=== PATIENT | male | born 1995 | race Caucasian/White ===

== ENCOUNTER 2019-06-06 16:42 | Emergency (ER) | payer MEDICAID ==
[~2019-06-06] VITALS: Ht 182.9 cm; Wt 68.0 kg
[2019-06-06 17:37] LABS: Basophils # (auto) 0 uL; Basophils % (auto) 0.4 % (0.0-2.0); Eosinophils # (auto) 0.1 uL; Eosinophils % (auto) 1.4 % (0.0-7.0); Hemoglobin 15.9 g/dL (13.5-17.5); Lymphocytes # (auto) 2.8 uL; Lymphocytes % (auto) 43.4 % (10.0-50.0); Mean Corpuscular Hemoglobin 32.1 pg (28.0-32.0); Mean Corpuscular Hgb Conc. 34.5 g/dL (32.0-36.0); Monocytes # (auto) 0.5 uL; Monocytes % (auto) 7.3 % (0.0-12.0); Neutrophils % (auto) 47.5 % (37.0-80.0); Nucleated Red Blood Cells % 0.1 %; Platelet Count (auto) 215 10^3/uL (140-450); Red Blood Cells 4.95 10^6/uL (4.5-5.90); Red Cell Distribution Width 12.9 % (11.8-14.3); White Blood Cell 6.4 10^3/uL (4.4-10.8)
[2019-06-06 17:51] LABS: Urine Bacteria NONE SEEN /hpf (None Seen); Urine Blood Negative /uL (Negative); Urine Mucus FEW (None Seen); Urine Specific Gravity 1.037 (1.001-1.035); Urine WBC 1 /hpf (0 - 3)
[2019-06-06 17:58] LABS: Albumin 4.3 g/dL (3.4-5.0); BUN/Creatinine Ratio 15.1; Calcium 8.8 mg/dL (8.5-10.1); Potassium 3.5 mmol/L (3.5-5.1)
[2019-06-06 17:59] LABS: Alcohol, Urine < 3.0 mg/dL (0-5); Amphetamine Screen, Urine NEGATIVE (NEGATIVE); Barbiturate Scree,Urine NEGATIVE (NEGATIVE); Benzodiazephine Screen, Urine NEGATIVE (NEGATIVE); Cannabinoid Screen, Urine NEGATIVE (NEGATIVE); Cocaine Screen, Urine NEGATIVE (NEGATIVE); Opiate Scree,Urine NEGATIVE (NEGATIVE); Phencyclidine Screen, Urine NEGATIVE (NEGATIVE)
[2019-06-06 17:59] LABS: Bilirubin, Total 0.4 mg/dL (0.2-1.0); Total Protein 7.3 g/dL (6.4-8.2)
[2019-06-06 18:19] VITALS: BP 103/61
== END 2019-06-06 18:59 | disposition home or self-care (01) ==
LOC: ER 16:42
DX: R10.31 Right lower quadrant pain (principal); R10.32 Left lower quadrant pain
CPT/HCPCS: 36415; 74176; 80053; 80307; 81001; 85025

== ENCOUNTER 2020-08-25 13:27 | Emergency (ER) | payer SELFPAY ==
[~2020-08-25] VITALS: Ht 185.4 cm; Wt 73.9 kg
[2020-08-25 14:06] VITALS: BP 129/77
[2020-08-25] MEDS ORDERED: cefTRIAXone SOD 1,000 MG VL IM ONE (16:30)
[2020-08-25] MEDS ORDERED: ACETAMINOPHEN 500 MG TAB PO ONE (16:30)
== END 2020-08-25 17:17 | disposition home or self-care (01) ==
LOC: ER 13:27
DX: J12.9 Viral pneumonia, unspecified (principal); J03.90 Acute tonsillitis, unspecified; Z20.822 Contact with and (suspected) exposure to COVID-19
CPT/HCPCS: 36415; 71045; 87426; 93005; 96372; 99285; J0696

== ENCOUNTER 2021-03-16 09:12 | Emergency (ER) | payer SELFPAY ==
[~2021-03-16] VITALS: Ht 182.9 cm; Wt 67.1 kg
[2021-03-16] MEDS ORDERED: SODIUM CHLORIDE 0.9% 1,000 ML IV ONE ×2 (09:45)
[2021-03-16 09:50] LABS: Basophils # (auto) 0 10 ^3/uL (0-0.2); Basophils % (auto) 1.2 % (0.0-2.0); Eosinophils # (auto) 0.1 10 ^3/uL (0-0.8); Hematocrit 45.1 % (41.0-53.0); Hemoglobin 16.1 g/dL (13.5-17.5); Lymphocytes # (auto) 1.8 10 ^3/uL (0.4-5.4); Lymphocytes % (auto) 44.1 % (10.0-50.0); Mean Corpuscular Hemoglobin 32.6 pg (28.0-32.0); Mean Corpuscular Hgb Conc. 35.7 g/dL (32.0-36.0); Mean Corpuscular Volume 91.4 fL (80.0-100.0); Monocytes # (auto) 0.3 10 ^3/uL (0-1.3); Monocytes % (auto) 8.1 % (0.0-12.0); Neutrophils # (auto) 1.8 10 ^3/uL (1.6-8.6); Neutrophils % (auto) 44.6 % (37.0-80.0); Nucleated Red Blood Cells % 0.2 %; Red Blood Cells 4.93 10^6/uL (4.5-5.90); Red Cell Distribution Width 13.3 % (11.8-14.3)
[2021-03-16 10:12] LABS: Alanine Aminotransferase 29 U/L (16-61); Albumin 4.2 g/dL (3.4-5.0); Anion Gap 2 (5-15); Blood Urea Nitrogen 13 mg/dL (7-18); Carbon Dioxide 27 mmol/L (21-32); Chloride 108 mmol/L (98-107); Glucose 94 mg/dL (74-106); Magnesium 2.2 mg/dL (1.6-2.6); Potassium 4.4 mmol/L (3.5-5.1); Sodium 137 mmol/L (136-145)
[2021-03-16 10:18] LABS: Alkaline Phosphatase 58 U/L (45-117); Aspartate Aminotransferase 34 U/L (15-37); BUN/Creatinine Ratio 15.5; Bilirubin, Total 0.7 mg/dL (0.2-1.0); GFR African American 143 mL/min; GFR Non-African American 118 mL/min; Total Protein 8.3 g/dL (6.4-8.2)
[2021-03-16 11:37] VITALS: BP 102/50
== END 2021-03-16 12:06 | disposition home or self-care (01) ==
LOC: ER 09:12
DX: R55 Syncope and collapse (principal)
CPT/HCPCS: 36415; 70450; 71046; 80053; 83735; 84443; 84484; 85025; 93005; 96360; 99285; J7030; 96361

== ENCOUNTER 2021-11-16 19:11 | Emergency (ER) | payer OTHER ==
[~2021-11-16] VITALS: Ht 182.9 cm; Wt 74.4 kg
[2021-11-16 19:11] VITALS: BP 111/62
[2021-11-16] MEDS ORDERED: ONDANSETRON ODT 4 MG TAB PO ONE (20:00)
[2021-11-16] MEDS ORDERED: ONDA-144 PO (20:03)
== END 2021-11-16 20:44 | disposition home or self-care (01) ==
LOC: ER 19:11
DX: K52.9 Noninfective gastroenteritis and colitis, unspecified (principal)
CPT/HCPCS: 99283; Q0162

== ENCOUNTER 2022-02-18 20:07 | Emergency (ER) | payer OTHER ==
[~2022-02-18] VITALS: Ht 177.8 cm; Wt 74.8 kg
[~2022-02-18 20:07] MED LIST: ONDA-144 PO
[2022-02-18] MEDS ORDERED: IOHEXOL 350 MG/ML 100ML IJ ONE (20:29)
[2022-02-18] MEDS ORDERED: levETIRAcetam 500 MG/5ML ORAL SOLN UD PO ONE (20:30)
[2022-02-18 21:14] VITALS: BP 131/91
[2022-02-18] MEDS ORDERED: levETIRAcetam 500 MG TAB PO ONE (21:30)
== END 2022-02-18 22:21 | disposition home or self-care (01) ==
LOC: ER 20:07 → EDBD 20:07 → ER 22:05
DX: R56.9 Unspecified convulsions (principal); M79.10 Myalgia, unspecified site; Z79.899 Other long term (current) drug therapy; V43.62XA Car passenger injured in collision with other type car in traffic accident, initial encounter; Y93.89 Activity, other specified; Y92.410 Unspecified street and highway as the place of occurrence of the external cause; Y99.8 Other external cause status
CPT/HCPCS: 70450; 71260; 72125; 93005; 99285; Q9967

== ENCOUNTER 2022-08-13 09:57 | Emergency (ER) | payer OTHER ==
[~2022-08-13] VITALS: Ht 175.3 cm; Wt 62.0 kg
[2022-08-13 10:12] VITALS: BP 110/68
[2022-08-13 10:51] LABS: Basophils # (auto) 0 10 ^3/uL (0-0.2); Hemoglobin 15.5 g/dL (13.5-17.5); Lymphocytes # (auto) 1.2 10 ^3/uL (0.4-5.4); Neutrophils # (auto) 2.6 10 ^3/uL (1.6-8.6)
[2022-08-13 10:54] LABS: Basophils % (auto) 0.7 % (0.0-2.0); Eosinophils # (auto) 0.1 10 ^3/uL (0-0.8); Eosinophils % (auto) 1.3 % (0.0-7.0); Hematocrit 44.6 % (41.0-53.0); Mean Corpuscular Hemoglobin 33.7 pg (28.0-32.0); Mean Corpuscular Hgb Conc. 34.7 g/dL (32.0-36.0); Mean Corpuscular Volume 97.1 fL (80.0-100.0); Monocytes # (auto) 0.7 10 ^3/uL (0-1.3); Monocytes % (auto) 14.3 % (0.0-12.0); Neutrophils % (auto) 56.7 % (37.0-80.0); Nucleated Red Blood Cells % 0.1 %; Red Blood Cells 4.59 10^6/uL (4.5-5.90); White Blood Cell 4.6 10^3/uL (4.4-10.8)
[2022-08-13 11:17] LABS: BUN/Creatinine Ratio 15.8; Calcium 9.4 mg/dL (8.5-10.1); Potassium 4.3 mmol/L (3.5-5.1)
[2022-08-13] MEDS ORDERED: PANT40TA2 PO (12:08)
== END 2022-08-13 12:09 | disposition admitted as inpatient to this hospital (09) ==
LOC: ER 09:57 → EDBD 09:57 → ER 12:09
DX: K29.70 Gastritis, unspecified, without bleeding (principal); F17.210 Nicotine dependence, cigarettes, uncomplicated; F12.10 Cannabis abuse, uncomplicated
CPT/HCPCS: 36415; 74176; 80048; 85025